=== PATIENT | female | born 1955 | race Caucasian/White ===

== ENCOUNTER → 2017-06-12 | Outpatient (CLI) | payer MEDICAID ==
[~2017-06-12] MED LIST: ALDACTONE50 MG PO; ALPRAZOLAM 0.50.5 M1 PO; ASPIR 8181 MG; BENTYL20 MG PO; CARVEDILOL3.125 MG; CLEOCIN HCL150 MG PO; CO Q-10100 MG PO; COREG3.125 MG PO; CORLANOR7.5 MG PO; COZAAR 25 MG TA25 M1 PO; COZAAR100 MG PO; CRESTOR10 MG PO; DAILY MULTIPLE1 EACH; DOXYCYCLINE 10100 M1 PO; FLAGYL500 MG PO; FUROSEMIDE 20 M20 MG PO; GENTAMICIN OPH3.5 G1 OPHTHALMIC; IBUPROFEN 800800 M1 PO; KLOR-CON 1010 MEQ PO; LASIX 20 MG TAB20 MG PO; LEVAQUIN 750 M750 MG PO; OMEPRAZOLE 20 M20 MG PO; ONDANSETRON HCL4 M2 PO; OSELB75 PO; PACERONE 200 M200 M1 PO; PREDNISONE 10 M10 MG PO; PREDNISONE 20 M20 M1 PO; SINGULAIR 10 MG10 M1 PO; SPIRONOLACTONE100 M3; SPIRONOLACTONE50 MG PO; SYMBICORT160 MCG/4. INH; TESSALON PERLE100 MG PO; TRAMADOL 50 MG50 MG PO; VENLAFAXIN75 MG/1 T2 PO; VENTOLIN HFA 1818 GM INH; VITAMINS; XANAX 0.25 MG0.25 MG PO; ZOFRAN4 MG PO; ZPAK PO
[2017-06-12 14:41] LABS: ABSOLUTE BASOPHILS 0.1 thou/uL (0.0-0.2); ABSOLUTE EOSINOPHILS 0.2 thou/uL (0.0-0.7); ABSOLUTE LYMPHOCYTES 3.1 thou/uL (0.8-5.3); ABSOLUTE MONOCYTES 0.6 thou/uL (0.0-1.2); ABSOLUTE NEUTROPHILS 6.7 thou/uL (1.6-8.1); BASOPHILS 1.2 %; EOSINOPHILS 2.2 %; HEMATOCRIT 43.5 % (37.0-47.0); HEMOGLOBIN 14.6 gm/dL (12.0-15.0); LYMPHOCYTES 28.5 %; MCH 32.6 pg (26.0-34.0); MCHC 33.5 g/dL (28.0-37.0); MCV 97.3 fL (80.0-100.0); MONOCYTES 5.7 %; MPV 9.1 fl. (7.2-11.1); NUCLEATED RBCS 0 /100WBC; PLATELET COUNT* 206 thou/uL (150-400); POLYS 62.4 %; RBC 4.47 mil/uL (4.20-5.00); RDW-CV 14.4 % (10.5-14.5); WBC 10.8 thou/uL (4.0-11.0)
[2017-06-12 14:58] LABS: ALBUMIN 3.4 g/dL (3.4-5.0); CALCIUM 8.7 mg/dL (8.5-10.1); CREATININE 1.4 mg/dL (0.6-1.3); PHOSPHORUS* 3.2 mg/dL (2.5-4.9); POTASSIUM 3.8 mmol/L (3.5-5.1)
[2017-06-13 14:38] LABS: URINE BILIRUBIN NEGATIVE (Negative); URINE BLOOD NEGATIVE (Negative); URINE CLARITY CLEAR; URINE COLOR YELLOW; URINE GLUCOSE-RANDOM NEGATIVE (Negative); URINE KETONES NEGATIVE (Negative); URINE LEUKOCYTES NEGATIVE (Negative); URINE NITRITE NEGATIVE (Negative); URINE PROTEIN 1+ (Negative); URINE UROBILINOGEN 0.2 E.U./dl (0.2-1.0)
== END ==
LOC: M.LAB 14:22
PROVIDERS: Internal Medicine Nephrology
DX: N18.3 Chronic kidney disease, stage 3 (moderate) (principal); R80.9 Proteinuria, unspecified; R31.9 Hematuria, unspecified; E78.5 Hyperlipidemia, unspecified; I50.9 Heart failure, unspecified; I42.9 Cardiomyopathy, unspecified; I48.91 Unspecified atrial fibrillation

== ENCOUNTER 2017-07-01 21:32 | Emergency (ER) | payer MEDICAID ==
[~2017-07-01] VITALS: Ht 162.6 cm; Wt 51.3 kg
[~2017-07-01 21:32] MED LIST changes: -ASPIR 8181 MG; -CARVEDILOL3.125 MG; -DAILY MULTIPLE1 EACH; -DOXYCYCLINE 10100 M1 PO; -GENTAMICIN OPH3.5 G1 OPHTHALMIC; -OSELB75 PO; -PREDNISONE 20 M20 M1 PO; -SPIRONOLACTONE100 M3
[2017-07-01] MEDS ORDERED: ASPIR 8181 MG (21:52)
[2017-07-01] MEDS ORDERED: SPIRONOLACTONE100 M3 (21:52)
[2017-07-01] MEDS ORDERED: CARVEDILOL3.125 MG (21:52)
[2017-07-01] MEDS ORDERED: DAILY MULTIPLE1 EACH (21:53)
[2017-07-01] MEDS ORDERED: OSELB75 PO (22:04)
[2017-07-01] MEDS ORDERED: ZPAK PO (22:04)
[2017-07-01] MEDS ORDERED: PREDNISONE 20 M20 M1 PO (22:04)
[2017-07-01 22:17] VITALS: BP 154/78
== END 2017-07-01 22:18 | disposition home or self-care (01) ==
LOC: M.ERS 21:32
DX: J06.9 Acute upper respiratory infection, unspecified (principal); J45.909 Unspecified asthma, uncomplicated; I50.9 Heart failure, unspecified; F17.210 Nicotine dependence, cigarettes, uncomplicated; Z86.14 Personal history of Methicillin resistant Staphylococcus aureus infection; Z90.49 Acquired absence of other specified parts of digestive tract; Z90.710 Acquired absence of both cervix and uterus; Z88.5 Allergy status to narcotic agent; Z88.8 Allergy status to other drugs, medicaments and biological substances; Z88.2 Allergy status to sulfonamides; Z88.0 Allergy status to penicillin

== ENCOUNTER 2018-01-03 13:49 | Emergency (ER) | payer MEDICARE ==
[~2018-01-03] VITALS: Ht 162.6 cm; Wt 70.3 kg
[~2018-01-03 13:49] MED LIST changes: +ASPIR 8181 MG; +CARVEDILOL3.125 MG; +DAILY MULTIPLE1 EACH; +OSELB75 PO; +PREDNISONE 20 M20 M1 PO; +SPIRONOLACTONE100 M3
[2018-01-03] MEDS ORDERED: DOXYCYCLINE 10100 M1 PO (14:29)
[2018-01-03 14:32] VITALS: BP 122/68
== END 2018-01-03 14:33 | disposition home or self-care (01) ==
LOC: M.ERS 13:49
DX: L03.114 Cellulitis of left upper limb (principal); J44.9 Chronic obstructive pulmonary disease, unspecified; I10 Essential (primary) hypertension; F17.210 Nicotine dependence, cigarettes, uncomplicated; Z88.0 Allergy status to penicillin; Z88.1 Allergy status to other antibiotic agents; Z88.2 Allergy status to sulfonamides; Z88.8 Allergy status to other drugs, medicaments and biological substances

== ENCOUNTER 2018-03-02 19:47 | Emergency (ER) | payer MEDICARE ==
[~2018-03-02] VITALS: Ht 162.6 cm; Wt 52.2 kg
[~2018-03-02 19:47] MED LIST changes: +DOXYCYCLINE 10100 M1 PO
[2018-03-02] MEDS ORDERED: GENTAMICIN OPH3.5 G1 OPHTHALMIC (21:40)
[2018-03-02 21:50] VITALS: BP 120/80
== END 2018-03-02 21:54 | disposition home or self-care (01) ==
LOC: M.ERS 19:47
DX: S05.01XA Injury of conjunctiva and corneal abrasion without foreign body, right eye, initial encounter (principal); I11.0 Hypertensive heart disease with heart failure; I50.9 Heart failure, unspecified; J44.9 Chronic obstructive pulmonary disease, unspecified; F17.210 Nicotine dependence, cigarettes, uncomplicated; Z90.49 Acquired absence of other specified parts of digestive tract; Z90.710 Acquired absence of both cervix and uterus; Z86.14 Personal history of Methicillin resistant Staphylococcus aureus infection; Z88.5 Allergy status to narcotic agent; Z88.2 Allergy status to sulfonamides; Z88.1 Allergy status to other antibiotic agents; Z88.0 Allergy status to penicillin; Z88.8 Allergy status to other drugs, medicaments and biological substances; W22.8XXA Striking against or struck by other objects, initial encounter; Y93.89 Activity, other specified; Y92.89 Other specified places as the place of occurrence of the external cause; Y99.8 Other external cause status

== ENCOUNTER → 2018-03-06 | Outpatient (CLI) | payer MEDICARE ==
[~2018-03-06] MED LIST changes: +GENTAMICIN OPH3.5 G1 OPHTHALMIC
[2018-03-06 15:10] LABS: ABSOLUTE BASOPHILS 0.1 thou/uL (0.0-0.2); ABSOLUTE EOSINOPHILS 0.1 thou/uL (0.0-0.7); ABSOLUTE MONOCYTES 0.8 thou/uL (0.0-1.2); ABSOLUTE NEUTROPHILS 5.6 thou/uL (1.6-8.1); BASOPHILS 0.7 %; EOSINOPHILS 1.2 %; HEMATOCRIT 43.1 % (37.0-47.0); HEMOGLOBIN 14.4 gm/dL (12.0-15.0); LYMPHOCYTES 23.1 %; MCHC 33.3 g/dL (28.0-37.0); MCV 99.1 fL (80.0-100.0); MONOCYTES 9.1 %; MPV 9.5 fl. (7.2-11.1); NUCLEATED RBCS 0 /100WBC; PLATELET COUNT* 189 thou/uL (150-400); POLYS 65.9 %; RBC 4.35 mil/uL (4.20-5.00); RDW-CV 13.8 % (10.5-14.5); WBC 8.5 thou/uL (4.0-11.0)
[2018-03-06 15:18] LABS: ALBUMIN 3.3 g/dL (3.4-5.0); CALCIUM 9.1 mg/dL (8.5-10.1); CREATININE 1.5 mg/dL (0.6-1.3); PHOSPHORUS* 3.4 mg/dL (2.5-4.9); POTASSIUM 4.2 mmol/L (3.5-5.1)
== END ==
LOC: M.LAB 14:51
PROVIDERS: Internal Medicine Nephrology
DX: R80.9 Proteinuria, unspecified (principal); N18.3 Chronic kidney disease, stage 3 (moderate)

== ENCOUNTER → 2018-09-25 | Outpatient (CLI) | payer MEDICARE ==
[2018-09-25 09:43] LABS: ALBUMIN 3.8 g/dL (3.4-5.0); CALCIUM 8.7 mg/dL (8.5-10.1); CREATININE 1.6 mg/dL (0.6-1.3); PHOSPHORUS* 3.6 mg/dL (2.5-4.9); POTASSIUM 4.5 mmol/L (3.5-5.1)
== END ==
LOC: M.LAB 09:03
PROVIDERS: Internal Medicine Nephrology
DX: R80.9 Proteinuria, unspecified (principal); N18.3 Chronic kidney disease, stage 3 (moderate)

== ENCOUNTER 2019-02-01 23:14 | Emergency (ER) | payer MEDICARE ==
[~2019-02-01] VITALS: Ht 160 cm; Wt 45.4 kg
[2019-02-02 00:11] LABS: INFLUENZA A ANTIGEN Negative (Negative); INFLUENZA B ANTIGEN Negative (Negative)
[2019-02-02] MEDS ORDERED: PREDNISONE50 MG PO (01:07)
[2019-02-02] MEDS ORDERED: PROAIR HFA8.5 GM INH (01:07)
[2019-02-02] MEDS ORDERED: ALBUTEROL2.5 MG/31 INH (01:07)
[2019-02-02 01:20] VITALS: BP 116/60
== END 2019-02-02 01:20 | disposition home or self-care (01) ==
LOC: M.ERS 23:14
PROVIDERS: Emergency Medicine
DX: J40 Bronchitis, not specified as acute or chronic (principal); J44.9 Chronic obstructive pulmonary disease, unspecified; I11.0 Hypertensive heart disease with heart failure; I50.9 Heart failure, unspecified; F17.210 Nicotine dependence, cigarettes, uncomplicated; Z90.49 Acquired absence of other specified parts of digestive tract; Z90.710 Acquired absence of both cervix and uterus; Z86.14 Personal history of Methicillin resistant Staphylococcus aureus infection; Z95.810 Presence of automatic (implantable) cardiac defibrillator; Z88.5 Allergy status to narcotic agent; Z88.2 Allergy status to sulfonamides; Z88.1 Allergy status to other antibiotic agents; Z88.0 Allergy status to penicillin

== ENCOUNTER → 2019-03-10 | Outpatient (CLI) | payer MEDICARE ==
[~2019-03-10] MED LIST changes: +ALBUTEROL2.5 MG/31 INH; +PREDNISONE50 MG PO; +PROAIR HFA8.5 GM INH
[2019-03-10 13:16] LABS: URINE BILIRUBIN NEGATIVE (Negative); URINE BLOOD TRACE (Negative); URINE CLARITY CLEAR; URINE COLOR YELLOW; URINE GLUCOSE-RANDOM NEGATIVE (Negative); URINE KETONES NEGATIVE (Negative); URINE LEUKOCYTES-REFLEX NEGATIVE (Negative); URINE NITRITE-REFLEX NEGATIVE (Negative); URINE PROTEIN TRACE (Negative); URINE SPECIFIC GRAVITY 1.015 (1.005-1.030); URINE UROBILINOGEN 0.2 E.U./dl (0.2-1.0)
[2019-03-10 13:56] LABS: ALBUMIN 3.9 g/dL (3.4-5.0); CALCIUM 9.7 mg/dL (8.5-10.1); CREATININE 1.6 mg/dL (0.6-1.3); PHOSPHORUS* 4.4 mg/dL (2.5-4.9); POTASSIUM 4.2 mmol/L (3.5-5.1)
== END ==
LOC: M.LAB 12:52
PROVIDERS: Internal Medicine Nephrology
DX: N18.3 Chronic kidney disease, stage 3 (moderate) (principal); R80.9 Proteinuria, unspecified; R31.9 Hematuria, unspecified

== ENCOUNTER 2019-03-25 06:07 | Emergency (ER) | payer MEDICARE ==
[~2019-03-25] VITALS: Ht 160 cm; Wt 45.4 kg
[2019-03-25 06:10] VITALS: BP 117/66
[2019-03-25] MEDS ORDERED: GENTAK5 ML TOP (06:41)
== END 2019-03-25 06:50 | disposition home or self-care (01) ==
LOC: M.ERS 06:07
DX: S05.01XA Injury of conjunctiva and corneal abrasion without foreign body, right eye, initial encounter (principal); I11.0 Hypertensive heart disease with heart failure; I50.9 Heart failure, unspecified; J45.909 Unspecified asthma, uncomplicated; J44.9 Chronic obstructive pulmonary disease, unspecified; F17.210 Nicotine dependence, cigarettes, uncomplicated; Z90.49 Acquired absence of other specified parts of digestive tract; Z90.710 Acquired absence of both cervix and uterus; Z86.14 Personal history of Methicillin resistant Staphylococcus aureus infection; Z88.0 Allergy status to penicillin; Z88.1 Allergy status to other antibiotic agents; Z88.2 Allergy status to sulfonamides; Z88.6 Allergy status to analgesic agent; Z88.8 Allergy status to other drugs, medicaments and biological substances; W50.4XXA Accidental scratch by another person, initial encounter; Y93.89 Activity, other specified; Y92.89 Other specified places as the place of occurrence of the external cause; Y99.8 Other external cause status

== ENCOUNTER → 2019-05-06 | Outpatient (CLI) | payer MEDICARE ==
[~2019-05-06] MED LIST changes: +GENTAK5 ML TOP
[2019-05-06 13:20] LABS: URINE BILIRUBIN NEGATIVE (Negative); URINE BLOOD TRACE (Negative); URINE CLARITY CLEAR; URINE COLOR YELLOW; URINE GLUCOSE-RANDOM NEGATIVE (Negative); URINE KETONES NEGATIVE (Negative); URINE LEUKOCYTES NEGATIVE (Negative); URINE NITRITE NEGATIVE (Negative); URINE PROTEIN 1+ (Negative); URINE SPECIFIC GRAVITY 1.025 (1.005-1.030); URINE UROBILINOGEN 0.2 E.U./dl (0.2-1.0)
[2019-05-06 13:27] LABS: ALBUMIN 3.6 g/dL (3.4-5.0); CALCIUM 8.5 mg/dL (8.5-10.1); CREATININE 1.8 mg/dL (0.6-1.3); PHOSPHORUS* 3.9 mg/dL (2.5-4.9); POTASSIUM 3.8 mmol/L (3.5-5.1)
== END ==
LOC: M.LAB 12:46 → EDBD 12:46
PROVIDERS: Internal Medicine Nephrology
DX: R80.9 Proteinuria, unspecified (principal); N18.3 Chronic kidney disease, stage 3 (moderate)

== ENCOUNTER → 2019-12-20 | Outpatient (CLI) | payer MEDICARE ==
--- NOTE | 2019-12-20 16:06 | 2DMMODE ---
[place] [address] 2 D/M-MODE ECHOCARDIOGRAM Name: MONA MARTINEZ Room: [facility]#: [id number] Admission: 12/20/19 Attend Phys: Leno Izaguirre MD Discharge: Date of : 57 Date of Service: 12/20/19 1606 Report #: [id number] THIS REPORT FOR: cc: Kale Stark James V. DO Holkins,David Monterroso MD [facility] ~ APPROVED REPORT Study performed: 12/20/2019 10:53:38 EXAM: Comprehensive 2D, Doppler, and color-flow Echocardiogram Patient Location: Out-Patient BSA: 1.53 HR: 66 bpm BP: 110/73 mmHg Other Information Study Quality: Good Indications Congestive Heart Failure 2D Dimensions IVSd: 10.90 (7-11mm) LVOT Diam: 20.20 (18-24mm) LVDd: 45.12 mm PWd: 7.98 (7-11mm) Ascending Ao: 29.52 (22-36mm) LVDs: 32.44 (25-40mm) Aortic Root: 30.73 mm Volumes Left Atrial Volume (Systole) LA ESV Index: 20.80 mL/m2 Aortic Valve AoV Peak Jose.: 1.09 m/s AO Peak Gr.: 4.73 mmHg LVOT Max P.60 mmHg AO Mean Gr.: 2.40 mmHg LVOT Mean P.86 mmHg LVOT Max V: 0.63 m/s AO V2 VTI: 20.11 cm LVOT Mean V: 0.44 m/s NIMO (VTI): 2.30 cm2 LVOT V1 VTI: 14.44 cm Mitral Valve E/A Ratio: 0.80 [place] [address] 2 D/M-MODE ECHOCARDIOGRAM Name: MONA MARTINEZ Room: [facility]#: [id number] Admission: 12/20/19 Attend Phys: Leno Izaguirre MD Discharge: Date of : 57 Date of Service: 12/20/19 1606 Report #: [id number] MV Decel. Time: 308.72 ms MV E Max Jose.: 0.49 m/s MV PHT: 89.53 ms MVA (PHT): 2.46 cm2 TDI E/Lateral E': 4.90 E/Medial E': 6.13 Medial E' Jose.: 0.08 m/s Lateral E' Jose.: 0.10 m/s Pulmonary Valve PV Peak Jose.: 0.72 m/s PV Peak Gr.: 2.10 mmHg Tricuspid Valve RAP Estimate: 5.00 mmHg TR Peak Gr.: 19.00 mmHg RVSP: 24.00 mmHg PA Pressure: 24.00 mmHg Left Ventricle The left ventricle is normal size. There is normal LV segmental wall motion. There is normal left ventricular wall thickness. Left ventricular systolic function is normal. The left ventricular ejection fraction is within the normal range. LVEF is 55-60%. Grade I - abnormal relaxation pattern. Right Ventricle The right ventricle is normal size. The right ventricular systolic function is normal. Pacemaker lead is present in the right ventricle. Atria The left atrium size is normal. The right atrium size is normal. Pacemaker lead is present in the right atrium. Aortic Valve The aortic valve is normal in structure. No aortic regurgitation is present. There is no aortic valvular stenosis. Mitral Valve The mitral valve is normal in structure. Mild mitral regurgitation. No evidence of mitral valve stenosis. Tricuspid Valve The tricuspid valve is normal in structure. Mild tricuspid regurgitation[place] [address] 2 D/M-MODE ECHOCARDIOGRAM Name: MONA MARITNEZ Room: [facility]#: [id number] Admission: 12/20/19 Attend Phys: Leno Izaguirre MD Discharge: Date of : 57 Date of Service: 12/20/19 1606 Report #: [id number] The pulmonary valve is normal in structure. There is no pulmonic valvular regurgitation. Great Vessels The aortic root is normal in size. IVC is normal in size and collapses >50% with inspiration. Pericardium There is no pericardial effusion. <Conclusion> The left ventricle is normal size. There is normal left ventricular wall thickness. Left ventricular systolic function is normal. The left ventricular ejection fraction is within the normal range. LVEF is 55-60%. Grade I - abnormal relaxation pattern. The right ventricle is normal size. The left atrium size is normal. The aortic valve is normal in structure. The mitral valve is normal in structure. Mild mitral regurgitation. The tricuspid valve is normal in structure. IVC is normal in size and collapses >50% with inspiration. There is no pericardial effusion. There is normal LV segmental wall motion. Pacemaker lead is present in the right ventricle. <ELECTRONICALLY SIGNED> By: David Ramirez MD, FACC 12/20/19 1606 1606 1606 David Ramirez MD, FACC /INF
== END ==
LOC: M.CRD 10:51
PROVIDERS: ATTEND Internal Medicine Cardiovascular Disease
DX: I08.1 Rheumatic disorders of both mitral and tricuspid valves (principal)

== ENCOUNTER → 2019-12-23 | Outpatient (CLI) | payer MEDICARE | LOC: M.RAD 12-16 16:04 | PROVIDERS: ATTEND Family Medicine | DX: Z12.31 Encounter for screening mammogram for malignant neoplasm of breast (principal); M85.89 Other specified disorders of bone density and structure, multiple sites; Z00.00 Encounter for general adult medical examination without abnormal findings ==

== ENCOUNTER 2021-06-17 21:40 | Emergency (ER) | payer OTHER ==
[~2021-06-17] VITALS: Ht 160 cm; Wt 48.5 kg
[2021-06-17] MEDS ORDERED: OMEPRAZOLE 20 M20 M1 PO (21:58)
[2021-06-17 23:40] VITALS: BP 122/78
== END 2021-06-17 23:40 | disposition home or self-care (01) ==
LOC: M.ERS 21:40
DX: S52.591A Other fractures of lower end of right radius, initial encounter for closed fracture (principal); J44.9 Chronic obstructive pulmonary disease, unspecified; I11.0 Hypertensive heart disease with heart failure; I50.9 Heart failure, unspecified; F17.210 Nicotine dependence, cigarettes, uncomplicated; Z90.710 Acquired absence of both cervix and uterus; Z86.14 Personal history of Methicillin resistant Staphylococcus aureus infection; Z79.899 Other long term (current) drug therapy; Z79.82 Long term (current) use of aspirin; Z88.5 Allergy status to narcotic agent; Z88.8 Allergy status to other drugs, medicaments and biological substances; Z88.2 Allergy status to sulfonamides; Z88.1 Allergy status to other antibiotic agents; Z88.0 Allergy status to penicillin; Z88.6 Allergy status to analgesic agent; W19.XXXA Unspecified fall, initial encounter; Y93.89 Activity, other specified; Y92.89 Other specified places as the place of occurrence of the external cause; Y99.8 Other external cause status